=== PATIENT | male | born 1955 | race Caucasian/White ===

== ENCOUNTER 2019-11-08 14:15 | Outpatient (CLI) | payer BC, SELFPAY ==
--- NOTE | 2019-11-08 14:18 | USCV_ITS ---
Taco Fish Age: 64 Gender: M : 1955 Exam Date: 11/08/2019 14:28 Ordering Phys: Maylin Monreal Technologist: Lindsey Moody Exam Location: [facility] Indication: BRADYCARDIA/HTN/HISTORY OF NICOTINE DEPENDENCE Risk Factors: Smoker Previous Vascular Surgery: None Right Brachial BP: / Left Brachial BP: / Right Left Velocity (cm/s) Spectral Plaque Velocity (cm/s) Spectral Plaque Syst/Diast Broadening Syst/Diast Broadening 108.10/23.80 Prox CCA 76.50 / 19.30 59.00/ 14.70 Mid CCA 52.90 / 15.10 62.30/ 13.10 Distal CCA 64.70 / 21.00 39.30/ 6.40 Prox ICA 50.40 / 22.70 59.50/ 12.20 Mid ICA 63.00 / 27.70 58.40/ 14.90 Distal ICA 64.70 / 36.10 58.60 ECA 63.00 1.01 ICA/CCA 1.22 Antegrade Vertebral Antegrade 24.40/ 9.80 cm/s 32.60/ 17.20 cm/s Tri Subclavian Tri 33.20 93.30 FINDINGS Intimal thickening in the common carotid and internal carotid arteries bilaterally Antegrade flow in the vertebral arteries bilaterally Normal Doppler flow velocities in the external carotid arteries bilaterally CONCLUSIONS Intimal thickening in the common carotid and internal carotid arteries bilaterally No significant stenosis, based on the above findings. No unstable plaques or lesions were noted Dr Jorge Luis Sandoval MD [facility] (Electronically Signed) Final Date: 08 November 2019 18:04 S
== END 2019-11-08 14:16 | disposition home or self-care (01) ==
LOC: US 14:16
PROVIDERS: PCP Nurse Practitioner Family; Visit Provider Nurse Practitioner Family
DX: I10 Essential (primary) hypertension (principal); Z95.5 Presence of coronary angioplasty implant and graft; Z87.891 Personal history of nicotine dependence; E78.5 Hyperlipidemia, unspecified
CPT/HCPCS: 80048; 84439; 84443; 93880

== ENCOUNTER 2020-01-29 08:59 | Outpatient (CLI) | payer BC, SELFPAY ==
[2020-01-29 09:20] VITALS: BMI 28.7
--- NOTE | 2020-01-29 10:36 | ECG_ITS ---
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 Interpretive Statements NAME OF STUDY: EXERCISE SESTAMIBI STRESS TEST INDICATION: CAD, PROCEDURE: The baseline electrocardiogram showed sinus bradycardia with a heart rate of 51 bpm. Some nonspecific T wave changes in the inferior leads.. At the baseline, the patient's blood pressure was not obtained The patient exercised for 7 minutes and 33 seconds on a standard Honorio protocol. Patient attained a maximum heart rate of 139 beats per minute(87% of the maximum predicted heart rate) with a blood pressure at the peak exercise of 140/83 mm Hg. The EKG at the peak exercise revealed no significant changes. Patient did not have any chest pain or any significant arrhythmis with the exercise Sestamibi was injected 1 minute prior to the peak exercise During the recovery phase, there were no new changes. Blood pressure at the end of the recovery phase was 150/81 mm Hg with a heart rate of 75 per minute. CONCLUSION: 1. No significant EKG changes with the treadmill exercise 2. No exercise-induced chest pain or cardiac arrhythmia 3. Good impaired exercise tolerance, attained a maximum of METs 4. Sestamibi/Sestamibi perfusion results pending; see separate report. Electronically Signed On 02-01-2020 16:41:59 SENIOR ACCOUNTS PAYABLE CLERK by Jorge Luis Sandoval M.D. [id number]
--- NOTE | 2020-01-29 10:37 | NMCV_ITS ---
NM stefan perf SPECT r/s* [id number] Fish España Age: 64 Gender: M : 1955 Exam Date: 01/29/2020 10:37 Ordering Phys: Jorge Luis Sandoval MD ([email or web address]) Technologist: BRAXTON Ellis Exam [facility]: [facility] Indications: CAD STRESS TEST [facility] IMAGE PROTOCOL Rest/Stress 1 Exercise Day Radiopharmaceutical Dose (mCi) Administration Site Administered by Rest: Tc-99m 11.0 IV BRAXTON Gautam Sestamibi Stress:Tc-99m 32.6 IV BRAXTON Gautam Sestamibi Rest: 29-Jan-2020 60 Discovery 630 Stress: 29-Jan-2020 30 Discovery 630 0.4mg Lexiscan. Images obtained in supine and prone position. SPECT RESULTS Technical Quality: Excellent Raw Data Analysis: Normal Image Corrections: No attenuation or motion correction applied Summed Stress Score: 3 Summed Rest Score: 4 Summed Difference Score: 0 PERFUSION FINDINGS A small area of decreased tracer uptake was noted in the apical inferior and the LV apex. No significant reversibility was noted in these regions FUNCTIONAL RESULTS (calculated via Gated SPECT) Stress Image LV EF (%): 65 Stress EDV (mL):123 TID: 1.03 Stress ESV (mL):43 FUNCTIONAL FINDINGS: Segmental wall motion analysis revealing no gross wall motion normalities. IMPRESSIONS 1. Myocardial perfusion may revealing a small area of persistent decreased tracer uptake in the apical region, suggestive of myocardial scarring versus attenuation artifact. 2. Normal LV ejection fraction of 65%. 3. LV wall motion analysis revealing no gross wall motion normalities. 4. LV volume, upper limit of normal. No significant coronary ischemia, based on the above findings Dr Jorge Luis Sandoval MD [facility] (Electronically Signed) Final Date: 30 January 2020 12:04 S
[2020-01-29 11:53] VITALS: BP 150/81; PULSE 71
--- NOTE | 2020-01-29 12:45 | XRR_ITS ---
PROCEDURE INFORMATION: Exam: XR Left Ankle Exam date and time: 01/29/2020 12:50 PM Age: 64 years old Clinical indication: Condition or disease; Arthritis; Type not specified; Ankle and foot; Left TECHNIQUE: Imaging protocol: XR Left ankle. Views: 1 or 2 views. COMPARISON: MRI Ankle w/o LEFT* [id number] 08/26/2015 6:42 AM FINDINGS: Bones/joints: No acute fracture evident. Small 3 mm calcification/ossification alongside medial malleolus, appears chronic. No significant joint space narrowing. Small inferior and posterior heel spurs. Soft tissues: Normal. XR/XR ankle LT 2V [id number] IMPRESSION: No acute findings. Mild degenerative changes.
== END 2020-01-29 09:00 | disposition home or self-care (01) ==
PROVIDERS: PCP Nurse Practitioner Family; Visit Provider Internal Medicine Cardiovascular Disease
DX: I25.10 Atherosclerotic heart disease of native coronary artery without angina pectoris (principal); M13.872 Other specified arthritis, left ankle and foot
CPT/HCPCS: 73600; 78452; 93017; A9500

== ENCOUNTER 2021-09-28 12:23 | Outpatient (CLI) | payer BC, SELFPAY ==
[2021-09-28 12:42] VITALS: BMI 26.7
--- NOTE | 2021-09-28 13:05 | ECG_ITS ---
[facility] Test Date: 2021-09-28 Pat Name: Fish España Department: Room: Gender: Male Marketing Lead: : 1955 Requested By: Lobo Sr Order Number: [id number] Jesus MD: Jann Broussard M.D. Interpretive Statements NAME OF STUDY: TREADMILL STRESS TEST INDICATION: [CAD] EXERCISE DATA: The patient was exercised by Honorio protocol. Baseline heart rate was 68 beats per minute. Baseline blood pressure was 143/84 millimeters of mercury. Target heart rate was 132 beats per minute. Maximum heart rate achieved was 135bpm, which was 102% of the target heart rate. Maximum blood pressure was 184/87 millimeters of mercury. Total exercise time was 6 minutes and 41 seconds. Maximum METs achieved was 10.2, maximum VO2 was 35.7. The reason for ending the test was completion of the protocol. The patient complained of shortness of breath during the stress test, which then resolved at the end of the test. ELECTROCARDIOGRAM: BASELINE: Showed sinus rhythm, normal axis, no significant ST-T changes at the baseline noted. [] EXERCISE: At the peak exercise level, [] No significant ST-T changes suggestive of ischemia noted. [] RECOVERY: During the recovery period, heart rate dropped appropriately. No significant ST-T changes in the recovery suggestive of ischemia noted. [] CONCLUSION: 1. Exercise capacity was good. 2. Heart rate response was appropriate. 3. Blood pressure response was appropriate. 4. Symptoms not suggestive of ischemia. 5. Exercise stress test was not suggestive of ischemia. Electronically Signed On 10-19-2021 0:31:02 CDT by Jann Broussard M.D. [id number]
[2021-09-28 13:29] VITALS: BP 168/89; PULSE 66
== END 2021-09-28 12:24 | disposition home or self-care (01) ==
PROVIDERS: PCP Family Medicine; Visit Provider Internal Medicine Cardiovascular Disease
DX: I25.10 Atherosclerotic heart disease of native coronary artery without angina pectoris (principal); R06.02 Shortness of breath
CPT/HCPCS: 93017

== ENCOUNTER 2022-07-12 08:50 | Outpatient (CLI) | payer OTHER, SELFPAY ==
--- NOTE | 2022-07-12 09:06 | CT_ITS ---
WS: [id number] CT HEAD TECHNIQUE: Noncontrast CT of the head obtained from the skullbase to the vertex. CLINICAL INFORMATION: SYNCOPE COLLAPSE COMPARISON: 2016 DLP: 1195.[address] scans at [facility] use at least one of these dose optimization techniques: automated e xposure control; mA and/or kV adjustment per patient size (includes exams where dose is matched to cl inical indication); or iterative reconstruction. FINDINGS: No evidence of intracranial hemorrhage or mass effect. Ventricular system and basal cisterns are fajardo nt. Mild small vessel changes with mild parenchymal volume loss. No extra-axial fluid collections. No evidence of mass or mass effect. Vascular calcification. Paranasal sinuses and mastoid air cells are well aerated. .Normal visualized soft tissues. CT/CT head wo con* [id number] IMPRESSION: 1. No evidence of intracranial hemorrhage or mass effect. 2. Mild small vessel changes with mild parenchymal volume loss partially sligh tly progressed compared to 2016 3. Vascular calcification. 4. No acute intracranial findings.
== END 2022-07-12 08:51 | disposition home or self-care (01) ==
PROVIDERS: PCP Family Medicine; Visit Provider Family Medicine
DX: R55 Syncope and collapse (principal)
CPT/HCPCS: 70450

== ENCOUNTER → 2022-09-13 15:05 | Outpatient (BNVA) | payer OTHER, SELFPAY | PROVIDERS: PCP Family Medicine; Visit Provider Internal Medicine Cardiovascular Disease | DX: R06.02 Shortness of breath (principal); R25.2 Cramp and spasm | CPT/HCPCS: 36415; 80048; 83735 ==

== ENCOUNTER → 2023-02-07 12:54 | Outpatient (BNVA) | payer BC, MEDICARE, SELFPAY | PROVIDERS: PCP Family Medicine; Visit Provider Internal Medicine Cardiovascular Disease | DX: I25.10 Atherosclerotic heart disease of native coronary artery without angina pectoris (principal); I10 Essential (primary) hypertension; R00.1 Bradycardia, unspecified; E78.2 Mixed hyperlipidemia; Z87.891 Personal history of nicotine dependence | CPT/HCPCS: 99214 ==

== ENCOUNTER → 2023-06-27 11:51 | Outpatient (BNVA) | payer BC, MEDICARE, SELFPAY | PROVIDERS: PCP Family Medicine; Visit Provider Family Medicine | DX: I10 Essential (primary) hypertension (principal); R31.9 Hematuria, unspecified | CPT/HCPCS: 80053; 80061; 81003; 82043; 85025 ==

== ENCOUNTER → 2024-01-16 14:58 | Outpatient (BNVA) | payer BC, MEDICARE, SELFPAY | PROVIDERS: PCP Family Medicine; Visit Provider Family Medicine | DX: N18.31 Chronic kidney disease, stage 3a (principal) | CPT/HCPCS: 80053; 80061 ==